=== PATIENT | female | born 1945 | race Caucasian/White ===

== ENCOUNTER 2017-12-25 09:43 | Outpatient (CLI) | payer MEDICARE | END 2017-12-25 09:44 | disposition home or self-care (01) | LOC: BICMAMMO 09:43 | PROVIDERS: ATTEND Family Medicine | DX: Z12.31 Encounter for screening mammogram for malignant neoplasm of breast (principal); R92.1 Mammographic calcification found on diagnostic imaging of breast; Z80.3 Family history of malignant neoplasm of breast | CPT/HCPCS: 77063; 77067 ==

== ENCOUNTER 2018-12-26 10:07 | Outpatient (CLI) | payer MEDICARE ==
--- NOTE | 2018-12-26 11:12 | MMO ---
Bilateral MAMMO Bilat Screen [facility]. CLINICAL HISTORY: Patient is 73 years old and is seen for screening. The patient has the following family history of breast cancer: maternal grandmother; maternal aunt and cousin female, maternal. The patient has no personal history of cancer. VIEWS: The views performed were: bilateral craniocaudal with tomosynthesis and bilateral mediolateral oblique with tomosynthesis. FILMS COMPARED: The present examination has been compared to prior imaging studies performed at [facility] on 07/19/2010 and 09/15/2011, and at [facility] on 12/17/2014, 12/21/2015, 12/22/2016 and 12/25/2017. MAMMOGRAM FINDINGS: There are scattered fibroglandular densities. There are no suspicious masses, suspicious calcifications, or new areas of architectural distortion. IMPRESSION: THERE IS NO MAMMOGRAPHIC EVIDENCE OF MALIGNANCY. A ROUTINE FOLLOW-UP MAMMOGRAM IN 1 YEAR IS RECOMMENDED. THE RESULTS OF THIS EXAM WERE SENT TO THE PATIENT. ACR BI-RADS Category 1 - Negative MAMMOGRAPHY NOTE: 1. A negative mammogram report should not delay a biopsy if a dominant of clinically suspicious mass is present. 2. Approximately 10% to 15% of breast cancers are not detected by mammography. 3. Adenosis and dense breasts may obscure an underlying neoplasm.
== END 2018-12-26 10:08 | disposition home or self-care (01) ==
LOC: BICMAMMO 10:07
PROVIDERS: ATTEND Family Medicine
DX: Z12.31 Encounter for screening mammogram for malignant neoplasm of breast (principal); Z80.3 Family history of malignant neoplasm of breast
CPT/HCPCS: 77063; 77067

== ENCOUNTER 2020-01-09 10:11 | Outpatient (CLI) | payer MEDICARE ==
--- NOTE | 2020-01-09 10:52 | MMO ---
Bilateral MAMMO Bilat Screen [facility]. CLINICAL HISTORY: Patient is 74 years old and is seen for screening. The patient has the following family history of breast cancer: maternal grandmother; maternal aunt and cousin female, maternal. The patient has no personal history of cancer. VIEWS: The views performed were: bilateral craniocaudal with tomosynthesis and bilateral mediolateral oblique with tomosynthesis. FILMS COMPARED: The present examination has been compared to prior imaging studies performed at [facility] on 12/21/2015, 12/22/2016, 12/25/2017 and 12/26/2018. This study has been interpreted with the assistance of computer-aided detection. MAMMOGRAM FINDINGS: There are scattered fibroglandular densities. There are no suspicious masses, suspicious calcifications, or new areas of architectural distortion. IMPRESSION: THERE IS NO MAMMOGRAPHIC EVIDENCE OF MALIGNANCY. A ROUTINE FOLLOW-UP MAMMOGRAM IN 1 YEAR IS RECOMMENDED. THE RESULTS OF THIS EXAM WERE SENT TO THE PATIENT. ACR BI-RADS Category 1 - Negative MAMMOGRAPHY NOTE: 1. A negative mammogram report should not delay a biopsy if a dominant of clinically suspicious mass is present. 2. Approximately 10% to 15% of breast cancers are not detected by mammography. 3. Adenosis and dense breasts may obscure an underlying neoplasm. Reported by: CHERYLE COSBY MD Electonically Signed: [id number]
== END 2020-01-09 10:12 | disposition home or self-care (01) ==
LOC: BICMAMMO 10:11
PROVIDERS: ATTEND Family Medicine
DX: Z12.31 Encounter for screening mammogram for malignant neoplasm of breast (principal); Z80.3 Family history of malignant neoplasm of breast
CPT/HCPCS: 77063; 77067

== ENCOUNTER 2021-01-14 10:02 | Outpatient (CLI) | payer MEDICARE | END 2021-01-14 10:03 | disposition home or self-care (01) | LOC: BICMAMMO 10:02 | PROVIDERS: ATTEND Physician Assistant | DX: Z12.31 Encounter for screening mammogram for malignant neoplasm of breast (principal); Z80.3 Family history of malignant neoplasm of breast | CPT/HCPCS: 77063; 77067 ==

== ENCOUNTER 2022-01-17 09:45 | Outpatient (CLI) | payer MEDICARE | END 2022-01-17 09:46 | disposition home or self-care (01) | LOC: BICMAMMO 09:45 | PROVIDERS: ATTEND Physician Assistant | DX: Z12.31 Encounter for screening mammogram for malignant neoplasm of breast (principal); M85.89 Other specified disorders of bone density and structure, multiple sites; Z80.3 Family history of malignant neoplasm of breast | CPT/HCPCS: 77063; 77067; 77080 ==

== ENCOUNTER 2022-12-22 06:03 | Day surgery (SDC) | payer MEDICARE ==
[2022-12-21 13:49] VITALS: BMI 28.9
[~2022-12-22 06:03] MED LIST: EPINEPHrine 0.3 MG in Ophthalmic Irrigation Solution 500 ML IRR SCH
[2022-12-22] MEDS ORDERED: Cyclopentolate 1% Opth Drop 2 ML BOT ONE (06:22)
[2022-12-22] MEDS ORDERED: Phenylephrine 2.5% Ophth Soln 5 ML BOT ONE (06:22)
[2022-12-22] MEDS ORDERED: Lidocaine 1% MPF 2 ML VIAL ONE (06:23)
[2022-12-22] MEDS ORDERED: Midazolam HCl 2 mg/2 ml Vial ONE (07:30)
[2022-12-22] MEDS ORDERED: fentaNYL 50 mcg/mL 1 mL Vial ONE (07:30)
[2022-12-22] MEDS ORDERED: Lidocaine 1% PF 5 ML VIAL ONE (07:40)
[2022-12-22] MEDS ORDERED: Lidocaine 4% PF 5 ML AMP ONE (07:40)
[2022-12-22] MEDS ORDERED: Triamcinolone 40 MG/ML VIAL ONE (07:40)
[2022-12-22] MEDS ORDERED: PROPOFOL 200 MG/20 ML VIAL ONE (07:40)
[2022-12-22] MEDS ORDERED: Maxitrol 0.1% Opth Oint 3.5 GM TUBE ONE (07:40)
[2022-12-22] MEDS ORDERED: Bupivacaine 0.75% 10 ML VIAL ONE (07:40)
[2022-12-22] MEDS ORDERED: CEFAZOLIN 1 GM VIAL ONE (07:40)
== END 2022-12-22 08:35 | disposition home or self-care (01) ==
LOC: SDC 06:03
PROVIDERS: ATTEND Ophthalmology Retina Specialist
PROC: 08T53ZZ Resection of Left Vitreous, Percutaneous Approach (ICD-10-PCS; principal; 2022-12-22)
PROC: 08NF3ZZ Release Left Retina, Percutaneous Approach (ICD-10-PCS; 2022-12-22)
DX: H43.312 Vitreous membranes and strands, left eye (principal); Z79.82 Long term (current) use of aspirin; Z79.899 Other long term (current) drug therapy; Z88.5 Allergy status to narcotic agent; Z88.8 Allergy status to other drugs, medicaments and biological substances; Z91.011 Allergy to milk products; Z98.41 Cataract extraction status, right eye; Z98.42 Cataract extraction status, left eye; Z96.1 Presence of intraocular lens
CPT/HCPCS: 67041; J3010; J0171; J0690; J2250; J2704; J3301; J3490

== ENCOUNTER 2023-03-23 05:51 | Day surgery (SDC) | payer MEDICARE ==
[2023-03-21 15:58] VITALS: BMI 28.9
[2023-03-23] MEDS ORDERED: PHENYLephrine 2.5% Ophth Soln 15 ml Bottle ONE (06:11)
[2023-03-23] MEDS ORDERED: CYCLOPENTOLATE 2% ONE (06:11)
[2023-03-23] MEDS ORDERED: fentaNYL PF 100 MCG/2 ML SYRINGE ONE (06:30)
[2023-03-23] MEDS ORDERED: Maxitrol 0.1% Opth Oint 3.5 GM TUBE ONE (07:03)
[2023-03-23] MEDS ORDERED: Lidocaine 4% PF 5 ML AMP ONE (07:03)
[2023-03-23] MEDS ORDERED: Lidocaine 1% PF 5 ML VIAL ONE (07:03)
[2023-03-23] MEDS ORDERED: Bupivacaine 0.75% 10 ML VIAL ONE (07:03)
[2023-03-23] MEDS ORDERED: CEFAZOLIN 1 GM VIAL ONE (07:03)
[2023-03-23] MEDS ORDERED: PROPOFOL 200 MG/20 ML VIAL ONE (07:03)
== END 2023-03-23 08:17 | disposition home or self-care (01) ==
LOC: SDC 05:51
PROVIDERS: ATTEND Ophthalmology Retina Specialist
PROC: 089430Z Drainage of Right Vitreous with Drainage Device, Percutaneous Approach (ICD-10-PCS; principal; 2023-03-23)
DX: H43.311 Vitreous membranes and strands, right eye (principal)
CPT/HCPCS: J0171; J0690; J2704; J3490

== ENCOUNTER 2023-04-07 09:43 | Outpatient (CLI) | payer MEDICARE | END 2023-04-07 09:44 | disposition home or self-care (01) | LOC: BICMAMMO 09:43 | PROVIDERS: ATTEND Physician Assistant | DX: N63.0 Unspecified lump in unspecified breast (principal) | CPT/HCPCS: 76642; 77066; G0279 ==

== ENCOUNTER 2024-05-21 09:21 | Outpatient (CLI) | payer MEDICARE | END 2024-05-21 09:22 | disposition home or self-care (01) | LOC: ULT 09:21 | PROVIDERS: ATTEND Internal Medicine Nephrology | DX: I12.9 Hypertensive chronic kidney disease with stage 1 through stage 4 chronic kidney disease, or unspecified chronic kidney disease (principal); N18.2 Chronic kidney disease, stage 2 (mild) | CPT/HCPCS: 36415; 76770; 80048; 81003; 82040; 82043; 83735; 83970; 84100; 84156; 85025; 86038; 86225; 93975 ==

== ENCOUNTER 2024-06-20 08:31 | Outpatient (CLI) | payer MEDICARE | END 2024-06-20 08:32 | disposition home or self-care (01) | LOC: CT 08:31 | PROVIDERS: ATTEND Orthopaedic Surgery | DX: M12.562 Traumatic arthropathy, left knee (principal) ==

== ENCOUNTER 2024-06-20 20:12 | Observation (INO) | payer MEDICARE ==
[2024-06-20 20:56] LABS: Hematocrit 39.6 % (36.0-47.0); Hemoglobin 13.7 g/dL (12.0-16.0); Mean Corpuscular HGB CONC 34.6 g/dL (32.0-36.0); Mean Corpuscular Hemoglobin 32.5 pg (27.0-31.0); Mean Corpuscular Volume 94.1 fL (78.0-98.0); Red Blood Cell (RBC) Count 4.21 mill/uL (4.20-5.40)
[2024-06-20 20:57] LABS: #Basophils 0.06 10x3/uL (0.0-0.2); %Basophils 0.9 % (0.0-1.0); %Eosinophils 0.4 % (0.0-10.0); %Lymphocytes 17.4 % (21.0-51.0); %Monocytes 5.1 % (0.0-10.0); %Neutrophils 75.8 % (42.0-75.0); Mean Platelet Volume 9.4 fL (7.4-10.4); Platelet Count 207 10x3/uL (130-400); RBC Distribution Width 12.8 % (11.5-14.5)
[2024-06-20] MEDS ORDERED: Meclizine HCl 25 MG TAB ONE (21:09)
[2024-06-20 21:12] LABS: ALT (SGPT) 20 U/L (8-55); AST (SGOT) 27 U/L (5-34); Albumin 4.2 g/dL (3.4-4.8); Alkaline Phosphatase 53 U/L (40-110); Anion Gap 12 mmol/L (10-20); BUN (Urea Nitrogen) 15 mg/dL (9.8-20.1); Bilirubin, Total 0.6 mg/dL (0.2-1.2); Calc. Creatinine Clearance 0 mL/min (70-130); Calcium 9.3 mg/dL (7.8-10.44); Carbon Dioxide 24 mmol/L (23-31); Chloride 105 mmol/L (98-107); Estimated GFR 62; Globulin 2.8 g/dL (2.4-3.5); Glucose 113 mg/dL (83-110); Potassium 3.8 mmol/L (3.5-5.1); Sodium 137 mmol/L (136-145)
[2024-06-20 21:17] LABS: Troponin I 0.014 ng/mL (< 0.028)
[2024-06-20 21:43] LABS: Bacteria/HPF None Seen HPF (None Seen); Bilirubin Negative (Negative); Blood, Urine Negative (Negative); CAUTI Indications for Culture Alt mental st,lethar; Clarity Clear (Clear); Glucose, Urine (Dipstick) Normal (Negative); Ketone, Urine Negative (Negative); Leukocyte Negative Leu/uL (Negative); Nitrite Negative (Negative); Protein, Urine (Dipstick) Negative (Neg-Trace); RBC/HPF None Seen HPF (0-3); Specific Gravity, Urine 1.009 (1.002-1.036); Squamous Epithelial None Seen HPF (0-3); Urobilinogen Normal mg/dL (Less than 2); WBC/HPF 0-3 HPF (0-3)
[2024-06-20 21:44] LABS: Urine Culture Reflex No No
[2024-06-20] MEDS ORDERED: Acetaminophen 325 MG TAB PO PRN (22:42)
[2024-06-20] MEDS ORDERED: Ondansetron PF 4 MG/2 ML Vial IVP PRN (22:42)
[2024-06-20] MEDS ORDERED: Meclizine HCl 25 MG TAB PO PRN (22:47)
[2024-06-21] MEDS: Aspirin 81 mg Enteric Coated Tablet PO SCH ×2 (00:45→11:14)
[2024-06-21] MEDS: Flecainide Acetate 100 MG TAB PO SCH ×2 (00:46→11:14)
[2024-06-21] MEDS: Atorvastatin Calcium 20 MG TAB PO SCH (00:46)
[2024-06-21 03:31] LABS: #Basophils 0.05 10x3/uL (0.0-0.2); %Basophils 0.7 % (0.0-1.0); %Eosinophils 0.9 % (0.0-10.0); %Lymphocytes 29.8 % (21.0-51.0); %Monocytes 10.1 % (0.0-10.0); %Neutrophils 58.2 % (42.0-75.0); Hematocrit 36.4 % (36.0-47.0); Hemoglobin 12.7 g/dL (12.0-16.0); Mean Corpuscular HGB CONC 34.9 g/dL (32.0-36.0); Mean Corpuscular Hemoglobin 32.4 pg (27.0-31.0); Mean Corpuscular Volume 92.9 fL (78.0-98.0); Mean Platelet Volume 9.3 fL (7.4-10.4); Platelet Count 199 10x3/uL (130-400); RBC Distribution Width 12.7 % (11.5-14.5); Red Blood Cell (RBC) Count 3.92 mill/uL (4.20-5.40)
[2024-06-21 04:03] LABS: Anion Gap 12 mmol/L (10-20); BUN (Urea Nitrogen) 14 mg/dL (9.8-20.1); Calc. Creatinine Clearance 0 mL/min (70-130); Calcium 8.9 mg/dL (7.8-10.44); Carbon Dioxide 26 mmol/L (23-31); Cardiac Risk 2.8 (Less than 4.5); Chloride 108 mmol/L (98-107); Cholesterol 151 mg/dl (< 200 Desired); Estimated GFR 69; Glucose 111 mg/dL (83-110); HDL Cholesterol 53 mg/dL (>60 Neg Risk); LDL Cholesterol, Calculated 80 mg/dL; Potassium 3.6 mmol/L (3.5-5.1); Sodium 142 mmol/L (136-145); Triglycerides 90 mg/dL (Less than 150)
[2024-06-21 04:26] VITALS: BMI 28.9
[2024-06-21 12:19] VITALS: TEMP 96.7
[2024-06-21 14:23] VITALS: BP 158/72
[2024-06-21] MEDS ORDERED: Atorvastatin Calcium 20 MG TAB PO SCH (21:00)
== END 2024-06-21 15:55 | disposition home or self-care (01) ==
LOC: ERS 20:12 → 2SE 22:38
PROVIDERS: ADMIT Internal Medicine; ATTEND Family Medicine
DX: R42 Dizziness and giddiness (principal); I10 Essential (primary) hypertension; I48.0 Paroxysmal atrial fibrillation; E78.5 Hyperlipidemia, unspecified; K21.9 Gastro-esophageal reflux disease without esophagitis; M54.50 Low back pain, unspecified; G89.29 Other chronic pain; Z90.49 Acquired absence of other specified parts of digestive tract; Z90.710 Acquired absence of both cervix and uterus; Z98.890 Other specified postprocedural states; Z91.011 Allergy to milk products; Z88.8 Allergy status to other drugs, medicaments and biological substances; Z88.5 Allergy status to narcotic agent; Z79.82 Long term (current) use of aspirin; Z79.899 Other long term (current) drug therapy
CPT/HCPCS: 70450; 70551; 73700; 80048; 80061; 81001; 83036; 84484; 85025; 93005; 93880; 97116; 99285; G0378 ×2; 36415; 80053; 84443

== ENCOUNTER 2024-06-25 07:43 | Outpatient (CLI) | payer MEDICARE ==
[2024-06-25 08:55] LABS: #Basophils 0.07 10x3/uL (0.0-0.2); %Basophils 1.4 % (0.0-1.0); %Lymphocytes 28.7 % (21.0-51.0); %Monocytes 6.6 % (0.0-10.0); %Neutrophils 61.9 % (42.0-75.0); Hematocrit 41.7 % (36.0-47.0); Mean Corpuscular HGB CONC 33.6 g/dL (32.0-36.0); Mean Corpuscular Hemoglobin 32.6 pg (27.0-31.0); Mean Platelet Volume 9.4 fL (7.4-10.4); Platelet Count 229 10x3/uL (130-400); RBC Distribution Width 12.9 % (11.5-14.5)
[2024-06-25 09:07] LABS: Anion Gap 10 mmol/L (10-20); BUN (Urea Nitrogen) 13 mg/dL (9.8-20.1); Calc. Creatinine Clearance 0 mL/min (70-130); Calcium 9.1 mg/dL (7.8-10.44); Carbon Dioxide 27 mmol/L (23-31); Chloride 110 mmol/L (98-107); Estimated GFR 65; Glucose 102 mg/dL (83-110); Potassium 4.3 mmol/L (3.5-5.1); Sodium 143 mmol/L (136-145)
[2024-06-25 09:08] LABS: Prothrombin Time 13.2 sec (12.0-14.7)
== END 2024-06-25 07:44 | disposition home or self-care (01) ==
LOC: LABBT 07:43
PROVIDERS: ATTEND Orthopaedic Surgery
DX: Z01.818 Encounter for other preprocedural examination (principal); M17.12 Unilateral primary osteoarthritis, left knee
CPT/HCPCS: 80048; 85025; 85610; 87081; 93005; 93010

== ENCOUNTER 2024-07-02 08:32 | Inpatient (IN) | payer MEDICARE ==
[2024-06-25 08:21] VITALS: BMI 28.9
[2024-07-02] MEDS ORDERED: EPINEPHrine 1 MG/ML VIAL ONE (09:32)
[2024-07-02] MEDS ORDERED: Bupivacaine 0.25% HCL 30 ML VIAL ONE (09:32)
[2024-07-02] MEDS ORDERED: Midazolam HCl 2 mg/2 ml Vial ONE (09:52)
[2024-07-02] MEDS ORDERED: fentaNYL 50 mcg/mL 1 mL Vial ONE ×3 (09:52→15:44)
[2024-07-02] MEDS ORDERED: Vancomycin 1 GM/200 ML (FROZEN) BAG ONE (09:59)
[2024-07-02] MEDS ORDERED: CEFAZOLIN 2 GM VIAL ONE (09:59)
[2024-07-02] MEDS ORDERED: Sodium Chloride 0.9% 100 ML ONE (09:59)
[2024-07-02] MEDS ORDERED: Tranexamic Acid 1,000 MG/10 ML VIAL ONE (09:59)
[2024-07-02] MEDS ORDERED: Bupivacaine PF 0.5% 30 ML VIAL ONE (10:30)
[2024-07-02] MEDS ORDERED: PROPOFOL 40 ML ONE (10:40)
[2024-07-02] MEDS ORDERED: Fentanyl 250 MCG/5 ML VIAL ONE (10:40)
[2024-07-02] MEDS ORDERED: Zolpidem Tartrate 5 MG TAB PO PRN ×2 (10:45→12:22)
[2024-07-02] MEDS ORDERED: fentaNYL 50 mcg/mL 1 mL Vial SLOW IVP PRN (10:45)
[2024-07-02] MEDS ORDERED: Ropivacaine 0.2% 550 ML 550 ML NERVE BLCK SCH (10:45)
[2024-07-02] MEDS ORDERED: HYDROcodone/Acetaminophen 10/325 mg Tablet PO PRN (10:45)
[2024-07-02] MEDS ORDERED: Ondansetron PF 4 MG/2 ML Vial ONE (10:54)
[2024-07-02] MEDS ORDERED: Dexamethasone 20 MG/5 ML VIAL ONE (10:54)
[2024-07-02] MEDS ORDERED: PHENYLEPHRINE-NS 100 MCG/ML 10 ML SYRINGE ONE (10:55)
[2024-07-02] MEDS ORDERED: Glycopyrrolate 0.2 MG/ML 5 ML SYRINGE ONE (11:01)
[2024-07-02] MEDS ORDERED: fentaNYL PF 100 MCG/2 ML SYRINGE ONE (11:01)
[2024-07-02] MEDS ORDERED: Lidocaine 2% PF 5 ML VIAL ONE (12:03)
[2024-07-02] MEDS ORDERED: diphenhydrAMINE 25 MG CAP PO PRN (12:22)
[2024-07-02] MEDS ORDERED: Ondansetron PF 4 MG/2 ML Vial IVP PRN (12:22)
[2024-07-02] MEDS ORDERED: Promethazine HCl 25 MG/ML VIAL IM PRN (12:22)
[2024-07-02] MEDS ORDERED: ECHINACEA 500 MG PO PRN (13:04)
[2024-07-02] MEDS: Ketorolac Tromethamine 30 MG (1 mL) VIAL IVP SCH (18:10)
[2024-07-02] MEDS: CEFAZOLIN 2 GM in Sodium Chloride 0.9% 100 ML IVPB SCH (18:10)
[2024-07-02] MEDS: Fenofibrate 48 MG TAB PO SCH (20:20)
[2024-07-02] MEDS: HYDROcodone/Acetaminophen 10/325 mg Tablet PO PRN (20:20)
[2024-07-02] MEDS: Ferrous Gluconate 324 MG TAB PO SCH (20:20)
[2024-07-02] MEDS: Aspirin 81 mg Enteric Coated Tablet PO SCH (20:20)
[2024-07-02] MEDS: Calcium Carbonate 600 MG + Vit D TAB PO SCH (20:20)
[2024-07-02] MEDS: Cholecalciferol 1,000 UNITS (25 MCG) TAB PO SCH (20:20)
[2024-07-02] MEDS: Pantoprazole DR 40 MG TAB PO SCH (20:20)
[2024-07-02] MEDS: Atorvastatin Calcium 10 MG TAB PO SCH (20:20)
[2024-07-02] MEDS: Senokot S 8.6-50 MG TAB PO SCH (20:20)
[2024-07-02] MEDS: Dicyclomine 10 MG CAP PO SCH (20:20)
[2024-07-02] MEDS: Flecainide 50 MG TAB PO SCH (20:20)
[2024-07-02] MEDS: Zinc Sulfate 220 MG CAP PO SCH (20:21)
[2024-07-02] MEDS ORDERED: Docusate 100 MG CAP PO SCH (21:00)
[2024-07-02] MEDS ORDERED: FERROUS SULFATE 47.5 MG PO SCH (21:00)
[2024-07-03 05:56] LABS: Hematocrit 37.4 % (36.0-47.0); Hemoglobin 12.7 g/dL (12.0-16.0); Mean Corpuscular Hemoglobin 32.4 pg (27.0-31.0); Mean Corpuscular Volume 95.4 fL (78.0-98.0); Platelet Count 233 10x3/uL (130-400); Red Blood Cell (RBC) Count 3.92 mill/uL (4.20-5.40)
[2024-07-03 06:09] LABS: ALT (SGPT) 12 U/L (8-55); AST (SGOT) 15 U/L (5-34); Albumin 3.4 g/dL (3.4-4.8); Alkaline Phosphatase 41 U/L (40-110); Anion Gap 10 mmol/L (10-20); BUN (Urea Nitrogen) 10 mg/dL (9.8-20.1); Bilirubin, Total 0.3 mg/dL (0.2-1.2); Calc. Creatinine Clearance 60 mL/min (70-130); Calcium 9.1 mg/dL (7.8-10.44); Carbon Dioxide 26 mmol/L (23-31); Chloride 104 mmol/L (98-107); Estimated GFR 68; Globulin 2.6 g/dL (2.4-3.5); Glucose 156 mg/dL (83-110); Potassium 4.3 mmol/L (3.5-5.1); Sodium 136 mmol/L (136-145)
[2024-07-03] MEDS: Multivitamin W/ Minerals 1 TAB PO SCH (09:25)
[2024-07-03] MEDS: dilTIAZem CD 240 MG CAP PO SCH (09:25)
[2024-07-03] MEDS: valACYclovir 500 MG TAB PO SCH (09:26)
[2024-07-03] MEDS: Ondansetron PF 4 MG/2 ML Vial IVP PRN (09:31)
[2024-07-03] MEDS: Promethazine HCl 25 MG/ML VIAL IM PRN (11:51)
[2024-07-03] MEDS: Acetaminophen 325 MG TAB PO PRN (11:52)
[2024-07-04 06:00] LABS: Hemoglobin 11.5 g/dL (12.0-16.0); Mean Corpuscular HGB CONC 34.8 g/dL (32.0-36.0); Mean Corpuscular Volume 94.8 fL (78.0-98.0); Mean Platelet Volume 9.7 fL (7.4-10.4); Platelet Count 176 10x3/uL (130-400); RBC Distribution Width 13.1 % (11.5-14.5); Red Blood Cell (RBC) Count 3.48 mill/uL (4.20-5.40)
[2024-07-04] MEDS: Polyethylene Glycol 3350 17 GM Packet PO SCH (12:37)
[2024-07-04] MEDS: traMADol HCl 50 MG TAB PO PRN (19:07)
[2024-07-05] MEDS: traMADol HCl 50 MG TAB PO PRN (05:27)
[2024-07-05 05:46] LABS: Hematocrit 33.9 % (36.0-47.0); Hemoglobin 11.3 g/dL (12.0-16.0); Mean Corpuscular HGB CONC 33.3 g/dL (32.0-36.0); Mean Corpuscular Hemoglobin 32.5 pg (27.0-31.0); Mean Corpuscular Volume 97.4 fL (78.0-98.0); Platelet Count 173 10x3/uL (130-400); Red Blood Cell (RBC) Count 3.48 mill/uL (4.20-5.40)
[2024-07-05 08:28] VITALS: BP 130/76; TEMP 98.5
[2024-07-05] MEDS: Polyethylene Glycol 3350 17 GM Packet PO SCH (09:43)
== END 2024-07-05 11:48 | disposition home health service (06) | DRG 470 ==
LOC: SDC 08:32 → SURG B 12:22 → SDC 16:41 → OBSVTOIN 07-03 10:23
PROVIDERS: ADMIT Orthopaedic Surgery; ATTEND Orthopaedic Surgery
PROC: 3E033XZ Introduction of Vasopressor into Peripheral Vein, Percutaneous Approach (ICD-10-PCS; 2024-07-02)
PROC: 0SRD0JZ Replacement of Left Knee Joint with Synthetic Substitute, Open Approach (ICD-10-PCS; principal; 2024-07-03)
DX: M12.562 Traumatic arthropathy, left knee (principal); I48.0 Paroxysmal atrial fibrillation; E78.5 Hyperlipidemia, unspecified; I10 Essential (primary) hypertension; K21.9 Gastro-esophageal reflux disease without esophagitis; Z90.710 Acquired absence of both cervix and uterus; Z98.890 Other specified postprocedural states; Z88.8 Allergy status to other drugs, medicaments and biological substances; Z79.82 Long term (current) use of aspirin; Z79.899 Other long term (current) drug therapy
CPT/HCPCS: 36415; 80053; 85027; 96374; 96375; 96376; A4306; C1713; C1776; C1889; G0378; J0171; J0665; J1100; J1885; J2250; J2405; J2550; J2704; J2795; J3010; J3370-JW

== ENCOUNTER 2025-04-14 11:58 | Outpatient (CLI) | payer MEDICARE | END 2025-04-14 11:59 | disposition home or self-care (01) | LOC: BICMAMMO 11:58 | PROVIDERS: ATTEND Physician Assistant | DX: Z12.31 Encounter for screening mammogram for malignant neoplasm of breast (principal); Z80.3 Family history of malignant neoplasm of breast | CPT/HCPCS: 77063; 77067 ==

== ENCOUNTER 2025-06-09 13:32 | Outpatient (CLI) | payer MEDICARE, OTHER | END 2025-06-09 13:33 | disposition home or self-care (01) | LOC: BICMAMMO 13:32 | PROVIDERS: ATTEND Physician Assistant | DX: Z78.0 Asymptomatic menopausal state (principal); M85.851 Other specified disorders of bone density and structure, right thigh; M85.852 Other specified disorders of bone density and structure, left thigh | CPT/HCPCS: 77080 ==

== ENCOUNTER 2025-06-10 09:12 | Outpatient (CLI) | payer MEDICARE, OTHER | END 2025-06-10 09:13 | disposition home or self-care (01) | LOC: BICCT 09:12 | PROVIDERS: ATTEND Physician Assistant | DX: Z12.2 Encounter for screening for malignant neoplasm of respiratory organs (principal); Z87.891 Personal history of nicotine dependence | CPT/HCPCS: 71271 ==